=== PATIENT | male | born 1995 ===

== ENCOUNTER → 2018-07-08 | Outpatient (REF) | payer BC ==
[2018-07-08 18:08] LABS: PLATELET COUNT, AUTOMATED 285 K/uL (150-450)
== END ==
LOC: ZZSTITCHES 17:56
PROVIDERS: ATTEND Physician Assistant
DX: R10.13 Epigastric pain (principal); R10.11 Right upper quadrant pain
CPT/HCPCS: 82040; 82247; 82310; 82374; 82435; 82565; 82947; 83690; 84075; 84132; 84155; 84295; 84450; 84460; 84520; 85025